=== PATIENT | female | born 1985 | race American Indian/Alaskan Native ===

== ENCOUNTER 2017-04-19 09:50 | Emergency (ER) | payer BC ==
[2017-04-19 10:06] VITALS: BP 109/70
--- NOTE | 2017-04-19 10:23 | Emergency Department Report ---
HPI - General Chief Complaint: Extremity Problem,Nontraumatic Time Seen by Provider: 04/19/17 10:19 - HPI HPI: Patient is a 31-year-old female presents to ED complaining left fifth toe pain x 5 days. Patient states 2 days ago she noticed bruising in between her fourth and fifth toe. Patient also states that she is rate is in the past week. Patient states she wears contact and sent them out when there is irrigated a bit irritated. Patient states she's been using a friend's gentamicin eyedrops which seems a little bit of relief but she is out of the drops. Patient states she has had the contacts and now intermittently since the past week. ED Past Medical Hx - Past Medical History Previous Medical History?: No - Surgical History Past Surgical History?: Yes Additional Surgical History: R femur fx ? - Social History Smoking Status: Never Smoker Substance Use Type: Alcohol - Medications Home Medications: Home Medications Medication Instructions Recorded Confirmed Last Taken Type Butenafine HCl [Lotrimin Ultra] 1 applic TP TID #1 tube 04/19/17 Unknown Rx Ofloxacin [Ocuflox 0.3%] 1 - 2 drop OP QID #1 bottle 04/19/17 Unknown Rx ED Review of Systems ROS: Stated complaint: TOE PAIN/RED EYES Other details as noted in HPI Constitutional: denies: chills, fever Eyes: denies: eye pain, eye discharge, vision change ENT: denies: ear pain, throat pain, hearing loss, congestion Respiratory: denies: cough, shortness of breath, wheezing Cardiovascular: denies: chest pain, palpitations Endocrine: no symptoms reported Gastrointestinal: denies: abdominal pain, nausea, diarrhea Genitourinary: denies: urgency, dysuria, frequency, discharge Musculoskeletal: denies: back pain, joint swelling, arthralgia Skin: denies: rash, lesions, pruritus Neurological: denies: headache, weakness, numbness, paresthesias, confusion Psychiatric: denies: anxiety, depression Hematological/Lymphatic: denies: easy bleeding, easy bruising Physical Exam - Physical Exam Vital Signs: Vital Signs 04/19/17 09:58 Temperature 98.6 F Pulse Rate 65 Respiratory 18 Rate Blood Pressure 109/70 O2 Sat by Pulse 97 Oximetry Physical Exam: GENERAL: Alert and oriented x3, no apparent distress, Normal Gait, atraumatic. HEAD: Head is normocephalic and a-traumatic. EYES: Conjunctivae mildly erythematous bilaterally, no corneal or upper and lower, no foreign objects bilaterally, vision is intact bilaterally ,Extra ocular muscles are intact. Pupils are equal, round, and reactive to light and accommodation. LUNGS: Symetrical with respiration, No wheezing, no rales or crackles, CTAB. HEART: S1, S2 present, regular rate and rhythm without murmur, no rubs, no gallops. Non tender to palpation EXTREMITIES/MUSCULOSKELETAL: No cyanosis, clubbing, rash, lesions or edema. Full ROM bilaterally. Pedal Pulses 2+ bilaterally. Whitish opening lesion seen in between toe 4 and 5, no bleeding, not erythematous, swelling NEUROLOGIC: The patient is cooperative with no focal neurologic deficits. Cranial nerves II through XII are grossly intact. Normal speech. Normal sensation in bilateral upper and lower extremities, No loss of sensation, No facial droop, Negative rhomberg. PSYCHIATRIC: Mood is congruent with affect, denies suicidal or homicidal ideations. SKIN: Warm and dry, No lesions, No ulceration or induration present. ED Course Vital Signs 04/19/17 09:58 Temperature 98.6 F Pulse Rate 65 Respiratory 18 Rate Blood Pressure 109/70 O2 Sat by Pulse 97 Oximetry ED Medical Decision Making - Medical Decision Making 31-year-old female presents with fungal infection and bilateral conjunctivitis Course: I discussed patient to keep moisture away from toes and keep toes try. I discussed I will be prescribing her some fungal cream to apply to the affected toe. I discussed the patient will be given some antibiotic prescription eyedrops for her eyes. I discussed with the patient to discard the contact and get a new prescription. Patient states she does have a refill of pickup the refill thoroughly the old ones. Vital signs are normal patient is in no acute distress She is neurologically intact and states she will follow instructions given Critical care attestation.: If time is entered above; I have spent that time in minutes in the direct care of this critically ill patient, excluding procedure time. ED Disposition Clinical Impression: Tinea pedis of right foot Conjunctivitis Qualifiers: Conjunctivitis type: acute Acute conjunctivitis type: unspecified Laterality: bilateral Qualified Code(s): H10.33 - Unspecified acute conjunctivitis, bilateral Disposition: - TO HOME OR SELFCARE Is pt being admited?: No Does the pt Need Aspirin: No Condition: Stable Instructions: Tinea Pedis (ED), Conjunctivitis (ED) Additional Instructions: Make sure to follow up with the primary care physician as discussed. Take all your medications as you've been prescribed. If you have any worsening symptoms or develop new symptoms please return to ED immediately. Prescriptions: Butenafine HCl [Lotrimin Ultra] 1 applic TP TID #1 tube Ofloxacin [Ocuflox 0.3%] 1 - 2 drop OP QID #1 bottle Referrals: TIERRA PRITCHETT MD [Referring] - 3-5 Days CARMELO SOL MD [Referring] - 3-5 Days [facility] [Outside] - 3-5 Days [facility] [Outside] - 3-5 Days [facility] [Outside] - 3-5 Days [facility] [Outside] - 3-5 Days Forms: Work/School Release Form(ED) Time of Disposition: 10:34
== END 2017-04-19 10:56 | disposition home or self-care (01) ==
LOC: ED 09:50
DX: B35.3 Tinea pedis (principal); H10.33 Unspecified acute conjunctivitis, bilateral
CPT/HCPCS: 99282

== ENCOUNTER 2019-04-12 06:33 | Emergency (ER) | payer BC ==
--- NOTE | 2019-04-12 08:41 | Emergency Department Report ---
Eye Injury/Foreign Body - HPI Duration: 3 Days Eye Location: Right Tetanus Status: Up to Date Eye Symptoms: Eye Pain: Yes (right upper eyelid), Blurred Vision: No, Eye Redness: No, Grinding/Hammering Metal: No, Contact Lens Use: No, Photophobia: No Other History: This is a 33-year-old -[place] female who presents to the emergency room with swelling and pain to the right upper eyelid for 3 days. Patient reports initially right eye was red with discharge which have resolved. For the past 2 days the right upper eyelid became swollen and red. Patient reports vision is the same with glasses or without. She denies grinding sensation. ED Review of Systems ROS: Stated complaint: RIGJT EYE PAIN Other details as noted in HPI Constitutional: denies: chills, fever Eyes: eye pain (right eye). denies: eye discharge, vision change ENT: denies: ear pain, throat pain Respiratory: denies: cough, shortness of breath, wheezing Cardiovascular: denies: chest pain, palpitations Gastrointestinal: denies: abdominal pain, nausea, diarrhea Skin: denies: rash, lesions Neurological: denies: headache, weakness, paresthesias Psychiatric: denies: anxiety, depression ED Past Medical Hx - Past Medical History Previous Medical History?: No - Surgical History Past Surgical History?: Yes Additional Surgical History: R femur fx ? - Social History Smoking Status: Never Smoker - Medications Home Medications: Home Medications Medication Instructions Recorded Confirmed Last Taken Type Butenafine HCl [Lotrimin Ultra] 1 applic TP TID #1 tube 04/19/17 Unknown Rx Ofloxacin [Ocuflox 0.3%] 1 - 2 drop OP QID #1 bottle 04/19/17 Unknown Rx Erythromycin [Erythromycin Ophth 10 applic OP QID 5 Days #1 tube 04/12/19 Unknown Rx Oint] Eye Injury Exam - Exam General: Vital signs noted. No distress. Alert and acting appropriately. - Visual Acuity Right Eye Exam: Right Chemosis (palpable tender pustule to right upper internal eyelid), Both EOMI, Neither Injection, Neither Abnormal Pupil, Neither Eye F oreign Body, Neither Lid Foreign Body, Neither Mucous Discharge, Neither Purulent Discharge, Neither Fluorescein Uptake, Neither Fluorescein Uptake (slit lamp), Neither Cell/Flare (slit lamp), Neither Corneal Edema, Neither Photophobia ED Course Vital Signs 04/12/19 06:38 Temperature 98.5 F Pulse Rate 82 Respiratory 18 Rate Blood Pressure 118/82 O2 Sat by Pulse 97 Oximetry ED Medical Decision Making - Medical Decision Making This is a 33-year-old female that presents with swelling and pain to the right upper eyelid for 3 days. Patient is stable and was examined by me. Vitals normal. A palpable tender pustule to right internal upper eyelid on exam, normal conjunctiva, no discharge. Physical assessment susceptible of stye of right eye. Start erythromycin. Instructed to apply warm compress to improve swelling. Discussed plan with mother and she agreed with plan. Discharged home in stable condition. Follow up with PCP in 24-72 hours. Critical care attestation.: If time is entered above; I have spent that time in minutes in the direct care o f this critically ill patient, excluding procedure time. ED Disposition Clinical Impression: Acute right eye pain Hordeolum eyelid, internal Qualifiers: Laterality: right Eyelid: upper Qualified Code(s): H00.021 - Hordeolum internum right upper eyelid Disposition: - TO HOME OR SELFCARE Is pt being admited?: No Condition: Stable Instructions: Stye (ED) Additional Instructions: Use warm compress to right eye to decrease swelling. Avoid rubbing or touching eyes, because rubbing eyes can cause worsening symptoms. Take medication as prescribed. Follow-up with your primary care doctor. Prescriptions: Erythromycin [Erythromycin Ophth Oint] 10 applic OP QID 5 Days #1 tube Referrals: [facility], [facility] [Provider Group] - 3-5 Days [facility] [Provider Group] - 3-5 Days [facility] [Provider Group] - 3-5 Days Forms: Work/School Release Form(ED) Time of Disposition: 08:47
[2019-04-12 09:19] VITALS: BP 116/80
== END 2019-04-12 09:00 | disposition home or self-care (01) ==
LOC: ED 06:33
DX: H57.11 Ocular pain, right eye (principal); H00.021 Hordeolum internum right upper eyelid; Z98.890 Other specified postprocedural states; Z79.899 Other long term (current) drug therapy
CPT/HCPCS: 99282

== ENCOUNTER 2019-05-20 11:17 | Emergency (ER) | payer BC ==
[2019-05-20 11:44] VITALS: BP 113/78
--- NOTE | 2019-05-20 11:44 | Event Note ---
ED Screening Note ED Screening Note: SEVERAL WEEK HX COUGH CHILLS WEAK DID NOT SEE PCP NO FLU SHOT THIS YEAR MOANING IN TRIAGE PMH NONE VSS This initial assessment/diagnostic orders/clinical plan/treatment(s) is/are subject to change based on patients health status, clinical progression and re- assessment by fellow clinical providers in the ED. Further treatment and workup at subsequent clinical providers discretion. Patient/guardian urged not to elope from the ED as their condition may be serious if not clinically assessed and managed. Initial orders include: XRAY RO PNA
[2019-05-20 12:13] LABS: Basophils # (Auto) 0.1 K/mm3 (0.0-0.1); Basophils % (Auto) 0.9 % (0.0-1.8); Eosinophils % (Auto) 0.5 % (0.0-4.3); Hematocrit 37.7 % (30.3-42.9); Lymphocytes % (Auto) 17.5 % (13.4-35.0); Mean Corpuscular HGB Conc 34 % (30-34); Mean Corpuscular Volume 92 fl (79-97); Monocytes # (Auto) 0.6 K/mm3 (0.0-0.8); Monocytes % (Auto) 10.5 % (0.0-7.3); Platelet Count 195 K/mm3 (140-440); Red Blood Count 4.12 M/mm3 (3.65-5.03); Red Cell Distribution Width 12.8 % (13.2-15.2)
[2019-05-20 12:33] LABS: BUN/Creatinine Ratio 10; Blood Urea Nitrogen 8 mg/dL (7-17); Calcium 9.2 mg/dL (8.4-10.2); Hemolysis Index 15
--- NOTE | 2019-05-20 13:14 | Emergency Department Report ---
- General Chief Complaint: Upper Respiratory Infection Stated Complaint: FLU LIKE SYMPTOMS Time Seen by Provider: 05/20/19 11:43 Source: patient Mode of arrival: Ambulatory Limitations: No Limitations - History of Present Illness Initial Comments: 34-year-old -[place] female patient presents with complaints of cough, generalized body aches, and vomiting and take only. Patient states her symptoms started about one week ago with a mild cough and congestion. She states her symptoms improved after a few days and then suddenly worsened 2 days ago. He denies any fever, hemoptysis, hematemesis/coffee ground emesis, diarrhea, or abdominal pain. She states she feels short of breath with coughing only and that the cough causes chest pain. States her cough has worsened since using Mucinex MD Complaint: cough, rhinorrhea, nasal congestion -: Sudden Improves With: nothing Worsens With: nothing - Related Data Previous Rx's Medication Instructions Recorded Last Taken Type Butenafine HCl [Lotrimin Ultra] 1 applic TP TID #1 tube 04/19/17 Unknown Rx Ofloxacin [Ocuflox 0.3%] 1 - 2 drop OP QID #1 bottle 04/19/17 Unknown Rx Erythromycin [Erythromycin Ophth 10 applic OP QID 5 Days #1 tube 04/12/19 Unknown Rx Oint] Benzonatate 200 mg PO TID PRN #30 tab 05/20/19 Unknown Rx Ibuprofen [Motrin 800 MG tab] 800 mg PO Q8HR PRN #21 tablet 05/20/19 Unknown Rx Ondansetron [Zofran Odt] 4 mg PO Q8HR #20 tab.rapdis 05/20/19 Unknown Rx Allergies Allergy/AdvReac Type Severity Reaction Status Date / Time Penicillins Allergy Anaphylaxis Verified 04/19/17 10:07 ED Review of Systems ROS: Stated complaint: FLU LIKE SYMPTOMS Other details as noted in HPI Constitutional: chills, fever, malaise. denies: diaphoresis ENT: throat pain Respiratory: cough. denies: shortness of breath, SOB with exertion, SOB at rest Cardiovascular: denies: chest pain, palpitations Gastrointestinal: nausea, vomiting. denies: abdominal pain, diarrhea, constipation Genitourinary: denies: dysuria Musculoskeletal: myalgia. denies: back pain Neurological: denies: headache ED Past Medical Hx - Past Medical History Previous Medical History?: No - Surgical History Additional Surgical History: R femur fx ? - Social History Smoking Status: Never Smoker Substance Use Type: None - Medications Home Medications: Home Medications Medication Instructions Recorded Confirmed Last Taken Type Butenafine HCl [Lotrimin Ultra] 1 applic TP TID #1 tube 04/19/17 Unknown Rx Ofloxacin [Ocuflox 0.3%] 1 - 2 drop OP QID #1 bottle 04/19/17 Unknown Rx Erythromycin [Erythromycin Ophth 10 applic OP QID 5 Days #1 tube 04/12/19 Unknown Rx Oint] Benzonatate 200 mg PO TID PRN #30 tab 05/20/19 Unknown Rx Ibuprofen [Motrin 800 MG tab] 800 mg PO Q8HR PRN #21 tablet 05/20/19 Unknown Rx Ondansetron [Zofran Odt] 4 mg PO Q8HR #20 tab.rapdis 05/20/19 Unknown Rx ED Physical Exam - General Limitations: No Limitations General appearance: alert, in no apparent distress - Head Head exam: Present: atraumatic, normocephalic - Eye Eye exam: Present: normal appearance - ENT ENT exam: Present: mucous membranes moist - Neck Neck exam: Present: normal inspection, full ROM. Absent: tenderness, lymphadenopathy - Respiratory Respiratory exam: Present: normal lung sounds bilaterally. Absent: respiratory distress, wheezes, rales, rhonchi, accessory muscle use - Cardiovascular Cardiovascular Exam: Present: regular rate, normal rhythm. Absent: systolic murmur, diastolic murmur, rubs, gallop - GI/Abdominal GI/Abdominal exam: Present: soft, normal bowel sounds. Absent: tenderness, guarding - Extremities Exam Extremities exam: Present: normal inspection, full ROM. Absent: pedal edema, calf tenderness - Back Exam Back exam: Present: normal inspection - Neurological Exam Neurological exam: Present: alert, oriented X3 - Psychiatric Psychiatric exam: Present: normal affect, normal mood - Skin Skin exam: Present: warm, dry, intact, normal color. Absent: rash ED Course Vital Signs 05/20/19 11:43 Temperature 98.6 F Pulse Rate 80 Respiratory 20 Rate Blood Pressure 113/78 O2 Sat by Pulse 99 Oximetry ED Medical Decision Making - Lab Data Result diagrams: 05/20/19 11:49 05/20/19 11:49 Lab Results 05/20/19 05/20/19 05/20/19 Range/Units 11:49 11:49 11:49 WBC 6.0 (4.5-11.0) K/mm3 RBC 4.12 (3.65-5.03) M/mm3 Hgb 13.0 (10.1-14.3) gm/dl Hct 37.7 (30.3-42.9) % MCV 92 (79-97) fl MCH 32 (28-32) pg MCHC 34 (30-34) % RDW 12.8 L (13.2-15.2) % Plt Count 195 (140-440) K/mm3 Lymph % (Auto) 17.5 (13.4-35.0) % Brewster % (Auto) 10.5 H (0.0-7.3) % Eos % (Auto) 0.5 (0.0-4.3) % Baso % (Auto) 0.9 (0.0-1.8) % Lymph # 1.0 L (1.2-5.4) K/mm3 Brewster # 0.6 (0.0-0.8) K/mm3 Eos # 0.0 (0.0-0.4) K/mm3 Baso # 0.1 (0.0-0.1) K/mm3 Seg Neutrophils % 70.6 H (40.0-70.0) % Seg Neutrophils # 4.2 (1.8-7.7) K/mm3 Sodium 138 (137-145) mmol/L Potassium 4.0 (3.6-5.0) mmol/L Chloride 102.3 (98-107) mmol/L Carbon Dioxide 23 (22-30) mmol/L Anion Gap 17 mmol/L BUN 8 (7-17) mg/dL Creatinine 0.8 (0.7-1.2) mg/dL Estimated GFR > 60 ml/min BUN/Creatinine Ratio 10 % Glucose 105 H (65-100) mg/dL Calcium 9.2 (8.4-10.2) mg/dL HCG, Qual Negative (Negative) - Radiology Data Radiology results: report reviewed CHEST 2 VIEWS INDICATION: COUGH. COMPARISON: None. FINDINGS: Support devices: None. Heart: Within normal limits. Pulmonary vasculature: Abnormal. Lungs/pleura: No acute air space or interstitial disease. No pneumothorax. Additional findings: None. IMPRESSION: 1. No acute findings. - Medical Decision Making 34-year-old female patient presents with flulike symptoms for the past week. Her vitals labs are normal. Chest x-ray is negative for pneumonia. Lungs are clear to auscultation bilaterally on exam. Patient's symptoms are consistent with a viral syndrome. Will treat conservatively with benzonatae, Zofran, ibuprofen, and increase fluids and food intake. Patient is stable for discharge home and follow-up with primary care provider. Discussed very strict return precautions in detail with patient who verbalizes understanding. Critical care attestation.: If time is entered above; I have spent that time in minutes in the direct care of this critically ill patient, excluding procedure time. ED Disposition Clinical Impression: Flu syndrome Disposition: DC-01 TO HOME OR SELFCARE Is pt being admited?: No Condition: Stable Instructions: Influenza (ED) Prescriptions: Benzonatate 200 mg PO TID PRN #30 tab PRN Reason: Cough Ibuprofen [Motrin 800 MG tab] 800 mg PO Q8HR PRN #21 tablet PRN Reason: fever/pain Ondansetron [Zofran Odt] 4 mg PO Q8HR #20 tab.rapdis Referrals: [facility] [Provider Group] - 3-5 Days Forms: Work/School Release Form(ED)
--- NOTE | 2019-05-20 13:27 | XRay Report ---
CHEST 2 VIEWS INDICATION: COUGH. COMPARISON: None. FINDINGS: Support devices: None. Heart: Within normal limits. Pulmonary vasculature: Abnormal. Lungs/pleura: No acute air space or interstitial disease. No pneumothorax. Additional findings: None. IMPRESSION: 1. No acute findings. Signer Name: Kevin Ortiz MD Signed: 05/20/2019 1:23 PM Workstation Name: [id number]
== END 2019-05-20 14:39 | disposition home or self-care (01) ==
LOC: ED 11:17
DX: J11.1 Influenza due to unidentified influenza virus with other respiratory manifestations (principal); Z98.890 Other specified postprocedural states; Z79.1 Long term (current) use of non-steroidal anti-inflammatories (NSAID); Z79.899 Other long term (current) drug therapy; Z88.0 Allergy status to penicillin
CPT/HCPCS: 36415; 71046; 80048; 84703; 85025